=== PATIENT | female | born 1985 | race Caucasian/White ===

== ENCOUNTER → 2020-09-19 | Outpatient (CLI) | payer OTHER ==
[2020-09-20 08:13] LABS: VITAMIN D, 25-HYDROXY 14.9 ng/mL (30.0-100.0)
[2020-09-20 16:14] LABS: ALDOLASE 4.9 U/L (3.3-10.3)
== END ==
LOC: LAB 13:17
PROVIDERS: Internal Medicine
DX: D89.89 Other specified disorders involving the immune mechanism, not elsewhere classified (principal); M25.50 Pain in unspecified joint; R76.8 Other specified abnormal immunological findings in serum; M79.10 Myalgia, unspecified site; R53.83 Other fatigue
CPT/HCPCS: 36415; 82085; 82550; 82728

== ENCOUNTER → 2021-03-26 | Outpatient (CLI) | payer OTHER ==
[2021-03-26 13:09] LABS: HEMOGLOBIN 13.5 gm/dl (12.3-15.3); RED BLOOD COUNT 4.64 M/UL (4.00-5.10); WHITE BLOOD COUNT 11.2 K/UL (4.5-11.0)
[2021-03-26 13:36] LABS: BUN/CREATININE RATIO 18 (0-10)
== END ==
LOC: LAB 11:35
PROVIDERS: Internal Medicine
DX: E55.9 Vitamin D deficiency, unspecified (principal); M35.9 Systemic involvement of connective tissue, unspecified; R79.82 Elevated C-reactive protein (CRP); Z79.899 Other long term (current) drug therapy
CPT/HCPCS: 36415; 80053; 81001; 82570; 84156; 85025; 85652; 86140